=== PATIENT | female | born 2000 | race Caucasian/White ===

== ENCOUNTER 2018-03-14 20:24 | Emergency (ER) | payer OTHER ==
[~2018-03-14] VITALS: Ht 157.5 cm; Wt 68.0 kg
[2018-03-14 20:33] VITALS: BP 108/76
--- NOTE | 2018-03-14 20:38 | NUR ---
TO BED #2 AMBULATORY, REPORT GIVEN ENMANUEL SLATER
--- NOTE | 2018-03-14 20:40 | NUR ---
PT PRESENTED ER WITH C/O PAIN TO THE MIDDLE FINGER ON THE RIGHT HAND. PT STATED SHE SMASHED HER FINGER A FEW DAYS AGO. SHE GOT HER NAILS MANICURED AND HAD CHEMICAL PLACED ON IT. THE FINGER IS INFLAMED, REDDNESS AND SWELLING. PT STATED SHE HAS HAD A FEVER. SHE ASLO STATED SHE HAS A LINE/RASH ON HER RIGHT LEG. SLIGHT SWELLING AND REDDNESS. COUSIN AT BEDSIDE. DENIES N/V/D; SKIN IS PINK/WARM/DRY; AAOX4 ; PATIENT STATES PAIN OF 10/10 AT THIS TIME; VSS; PATIENT POSITIONED FOR COMFORT; HOB ELEVATED; BEDRAILS UP X2; BED DOWN. ER MD MADE AWARE OF PT STATUS.
[2018-03-14] MEDS ORDERED: CEPHALEXIN 500 MG CAP PO ONE (21:30)
[2018-03-14] MEDS ORDERED: HYDROcodone/APAP 10/325 MG 1 TAB TAB PO STA (21:30)
--- NOTE | 2018-03-14 21:45 | NUR ---
XRAY WITH PT AT BEDSIDE
--- NOTE | 2018-03-14 21:57 | NUR ---
PO MEDS GIVEN-NADR AT THIS TIME
--- NOTE | 2018-03-14 22:10 | NUR ---
PT RESTING IN BED. FAMILY AT BEDSIDE. VITALS STABLE
[2018-03-14 22:40] VITALS: BP 108/76
--- NOTE | 2018-03-14 22:40 | NUR ---
Patient discharged with v/s stable. Written and verbal after care instructions given and explained. Patient alert, oriented and verbalized understanding of instructions. Ambulatory with steady gait. All questions addressed prior to discharge. ID band removed. Patient advised to follow up with PMD. Rx of NORCO, KETOCONAZOLE WERE given. Patient educated on indication of medication including possible reaction and side effects. Opportunity to ask questions provided and answered.
== END 2018-03-14 22:40 | disposition home or self-care (01) ==
LOC: MED 20:24
DX: L03.011 Cellulitis of right finger (principal); B35.4 Tinea corporis; J45.909 Unspecified asthma, uncomplicated
CPT/HCPCS: 73140; 99284

== ENCOUNTER 2018-03-17 14:01 | Emergency (ER) | payer OTHER ==
[~2018-03-17] VITALS: Ht 157.5 cm; Wt 65.8 kg
--- NOTE | 2018-03-17 14:08 | NUR ---
NO ANSWER WHEN CALLED FOR TRIAGE
[2018-03-17 14:18] VITALS: BP 102/64
--- NOTE | 2018-03-17 14:18 | NUR ---
PT WALKED/CAME BACK INTO THE LOBBY AT THIS TIME. CALLED INTO TRIAGE.
--- NOTE | 2018-03-17 14:26 | NUR ---
PT AMBULATED TO ER BED 03
--- NOTE | 2018-03-17 14:37 | NUR ---
C/O RT 3RD DIGIT PAIN S/P SLAMMING A DOOR ON HER FIGNER 1 WEEK AGO. TIP OF FINGER IS SWOLLEN WITH SMALL AMOUNT OF PUS BUILD UP AROUND NAIL BED. +CSM TO AFFECTER FINGER. XRAYS COMPLETE FROM VISIT ON 03/14/18. NAD NOTED./STSTED OTHERWISE.
[2018-03-17] MEDS ORDERED: ETHYL CHLORIDE 105 ML SPR TP ONE (14:50)
[2018-03-17] MEDS ORDERED: CLINDAMYCIN 150 MG CAP PO ONE (14:50)
--- NOTE | 2018-03-17 15:04 | NUR ---
DR KIM AT BEDSIDE PERFORMING I&D. PT TOLERATED WELL. 3RD DIGIT WRAPPED WITH STERILE NON ADHESIVE GAUZE AND KRELEX.
[2018-03-17 15:40] VITALS: BP 108/62
--- NOTE | 2018-03-17 15:40 | NUR ---
Patient discharged with v/s stable. Written and verbal after care instructions given and explained. Patient alert, oriented and verbalized understanding of instructions. Ambulatory with steady gait. All questions addressed prior to discharge. ID band removed. Patient advised to follow up with PMD. Rx of CLINDAMYCIN given. Patient educated on indication of medication including possible reaction and side effects. Opportunity to ask questions provided and answered.
== END 2018-03-17 15:40 | disposition home or self-care (01) ==
LOC: MED 14:01
DX: L03.011 Cellulitis of right finger (principal); J45.909 Unspecified asthma, uncomplicated
CPT/HCPCS: 99283